=== PATIENT | male | born 1945 | race Caucasian/White ===

== ENCOUNTER → 2017-09-09 | Outpatient (CLI) | payer OTHER ==
[~2017-09-09] MED LIST: CELEBREX; FLOMAX
== END ==
LOC: PLD 14:05 → LAB SHORT 14:05
DX: D48.5 Neoplasm of uncertain behavior of skin (principal)
CPT/HCPCS: 88305

== ENCOUNTER → 2018-03-11 | Outpatient (CLI) | payer OTHER | END | disposition home or self-care (01) | LOC: PLD 10:10 → LAB SHORT 10:10 | DX: C44.519 Basal cell carcinoma of skin of other part of trunk (principal) | CPT/HCPCS: 88305 ==

== ENCOUNTER → 2020-03-23 | Outpatient (CLI) | payer OTHER | END | disposition home or self-care (01) | LOC: LAB SHORT 15:19 → PLD 15:19 | DX: D48.5 Neoplasm of uncertain behavior of skin (principal) | CPT/HCPCS: 88305 ==

== ENCOUNTER → 2020-08-19 | Outpatient (CLI) | payer OTHER ==
[2020-08-19 09:26] LABS: Source, Urine Voided
[2020-08-19 12:48] LABS: Appearance, Urine Turbid (Clear); Bilirubin, Urine Neg (Neg); Blood, Urine 2+ (Neg); Color, Urine Yellow (P-Yellow); Glucose Qualitative, Urine Neg (Neg); Ketones, Urine Neg (Neg); Leukocyte Esterase, Urine 3+ (Neg); Nitrite, Urine Pos (Neg); Protein, Urine 2+ (Neg); Specific Gravity, Urine 1.015 (1.003-1.022); Urobilinogen, Urine NORM (Normal)
[2020-08-19 13:15] LABS: Bacteria Many /hpf; Squamous Epithelial Cells Not Seen /hpf (Few); White Blood Cells, Urine TNTC /hpf (0-5)
== END | disposition home or self-care (01) ==
LOC: LAB 08:55 → LAB SHORT 08:55
PROVIDERS: Family Medicine
DX: R30.0 Dysuria (principal)
CPT/HCPCS: 81001; 87077; 87086; 87186

== ENCOUNTER → 2021-04-11 | Outpatient (CLI) | payer OTHER | LOC: LAB SHORT 11:41 → PLD 11:41 | DX: D48.5 Neoplasm of uncertain behavior of skin (principal) | CPT/HCPCS: 88304 ==

== ENCOUNTER → 2021-04-18 | Outpatient (CLI) | payer OTHER | END | disposition home or self-care (01) | LOC: LAB SHORT 13:59 | DX: L72.0 Epidermal cyst (principal) | CPT/HCPCS: 88304 ==

== ENCOUNTER → 2021-12-25 | Outpatient (CLI) | payer OTHER | END | disposition home or self-care (01) | LOC: LAB SHORT 13:32 | DX: R30.0 Dysuria (principal) | CPT/HCPCS: 87077; 87086; 87186 ==

== ENCOUNTER → 2022-08-29 | Outpatient (CLI) | payer OTHER ==
[2022-08-29 20:05] LABS: International Normalized Ratio 2.84; Prothrombin Time Results 28.1 Sec (9.7-11.5)
== END | disposition home or self-care (01) ==
LOC: LAB SHORT 18:56 → LAB 18:56
PROVIDERS: Family Medicine
DX: I48.91 Unspecified atrial fibrillation (principal)
CPT/HCPCS: 85610

== ENCOUNTER → 2024-02-05 | Outpatient (CLI) | payer OTHER ==
[~2024-02-05] MED LIST changes: +BUDESONIDE EC3 M6 PO; +DOXY100 PO; +FINA5 PO; +FURO40 PO; +INSULANPEN SC; +LATA.005SO BOTHEYES; +METO50ER PO; +TAMS.4ER PO; +TRAM50 PO; +WARF1 PO; +WARF2.5 PO
== END ==
LOC: LAB 12:00 → LAB SHORT 12:00
DX: L08.9 Local infection of the skin and subcutaneous tissue, unspecified (principal)
CPT/HCPCS: 87070; 87205

== ENCOUNTER → 2025-03-31 | Outpatient (CLI) | payer OTHER ==
[2025-03-31 15:52] LABS: Hematocrit 48.2 % (37.0-53.0); Hemoglobin 15.7 g/dL (13.5-17.5); Mean Corpuscular HGB Conc 32.6 g/dL (31.5-36.5); Mean Corpuscular Volume 90 fL (80-100); NRBC ABSOLUTE 0.02 K/mm3 (0.00-0.02); NRBC Auto 0.2 /100 WBC (0.0-0.2); Platelet Count 209 K/mm3 (150-400); RDW Coefficient Variation 13.5 % (11.7-14.2); RDW Standard Deviation 45.1 fL (35.1-46.3)
[2025-03-31 17:01] LABS: BASOPHILS ABSOLUTE MAN 0.11 K/mm3 (0.00-0.23); BASOPHILS PERCENT MAN 1 % (0-2); EOSINOPHILS ABSOLUTE MAN 0.22 K/mm3 (0.00-0.68); EOSINOPHILS PERCENT MAN 2 % (0-6); LYMPHOCYTES ABSOLUTE MAN 7.68 K/mm3 (0.84-5.20); LYMPHOCYTES PERCENT MAN 69 % (21-46); MONOCYTES ABSOLUTE MAN 0.22 K/mm3 (0.16-1.47); MONOCYTES PERCENT MAN 2 % (4-13); NEUTROPHILS ABSOLUTE MAN 2.89 K/mm3 (1.96-9.15); SEG NEUTROPHILS PERCENT MAN 26 % (41-73)
[2025-03-31 20:25] LABS: Prostate Specific Antigen 0.501 ng/mL (0.000-4.000)
[2025-03-31 20:25] LABS: Alanine Aminotransfer (ALT/SGP 30 U/L (12-78); Albumin, Blood 3.6 g/dL (3.4-5.0); Albumin/Globulin Ratio 0.8 (0.8-1.8); Anion Gap 9 mmol/L (3-11); Aspartate Aminotrans (AST/SGOT 24 U/L (12-37); Bilirubin, Total 0.4 mg/dL (0.1-1.0); Blood Urea Nitrogen 22 mg/dL (8-24); CHOL/HDL RATIO 4.3; CO2, Blood 26 mmol/L (21-32); Calcium, Blood 9.1 mg/dL (8.5-10.1); Chloride, Blood 101 mmol/L (98-108); Cholesterol 201 mg/dL (50-200); Creatinine, Blood 0.95 mg/dL (0.60-1.20); Globulin, Blood 4.3 g/dL (2.2-4.0); Glucose, Blood 143 mg/dL (70-99); HDL Cholesterol 47 mg/dL (>39); LDL/HDL RATIO 2.5; Low Density Lipoprotein Chol 117 mg/dL (0-110); Potassium, Blood 4.0 mmol/L (3.5-5.5); Sodium, Blood 132 mmol/L (136-145); Thyroid Stimulating Hormone 1.430 uIU/mL (0.360-4.800); Total Protein, Blood 7.9 g/dL (6.4-8.2); Triglycerides 187 mg/dL (30-160); Very Low Density Lipoprot Chol 37 mg/dL (6-32)
== END ==
LOC: LAB SHORT 14:48 → LAB 14:48
PROVIDERS: Family Medicine
DX: E11.40 Type 2 diabetes mellitus with diabetic neuropathy, unspecified (principal); I10 Essential (primary) hypertension; I48.91 Unspecified atrial fibrillation; R06.09 Other forms of dyspnea; Z12.5 Encounter for screening for malignant neoplasm of prostate
CPT/HCPCS: 80053; 80061; 83036; 83880; 84443; 85025; G0103